=== PATIENT | male | born 1945 | race Caucasian/White ===

== ENCOUNTER 2016-05-28 15:28 | Inpatient (IN) | payer OTHER ==
[~2016-05-28] VITALS: Ht 182.9 cm; Wt 157.3 kg
[~2016-05-28 15:28] MED LIST: ACETAMINOPHEN325 M1 PO; ADVAIR 250/501 DISK IH; ALDACTONE25 MG PO; ALEVAZOL56.7 GM TP; ARICEPT10 MG PO; ASPIRIN325 MG PO; ATROVENT 00.5 MG/2.5 IH; COUMADIN10 MG PO; COUMADIN5 MG PO; COZAAR25 MG PO; CYANOCOBAL1000 MCG/2 IM; DAILY VALUE1 EACH PO; DECARA50000 UNIT PO; DOCUSATE SODIU100 MG PO; DULCOLAX10 MG PR; DULERA 200 MCG/13 GM IH; ENEMA133 M2 PR; FOLIC ACID0.4 MG PO; FOLIC ACID1 MG PO; GLUCOPHAGE500 MG PO; HUMULIN N100 UNITS/ SC; KLOR-CON M2020 MEQ PO; LANTUS 10100 UNITS/ SC; LASIX40 MG PO; LEVEMIR100 UNIT/2 SC; LOPRESSOR50 MG PO; METOLAZONE2.5 MG PO; MILK OF MAGN PO; NASAL DECONGEST30 ML BOTH NARES; NEURONTIN400 MG PO; NOVOLOG 10100 UNITS/ SC; NOVOLOG PE100 UNITS/ SC; PANTOPRAZOLE SO40 MG PO; PAXIL30 MG PO; POLYETHYLENE GL17 GM PO; PREDNISONE10 MG PO; PREDNISONE20 MG PO; PRILOSEC20 MG PO; PROVENTIL,2.5 MG/3 M IH; PROVENTIL2.5 MG/3 M IH; ROCEPHIN1000 MG IM; SPIRIVA RESPIMAT4 GM IH; SYMBICORT60 INHALAT IH; TOPROL XL50 MG PO; TRAMADOL HCL50 MG PO; VOLTAREN 0.1%2.5 ML BOTH EYES; XARELTO20 MG PO; ZANTAC150 MG PO; ZOCOR20 MG PO; ZOCOR40 MG PO
[2016-05-28 16:44] LABS: INTER. NORMALIZED RATIO 1.3; PROTHROMBIN TIME 13.8 (9.2-11.2); PTT 28.3 (25-32)
[2016-05-28 17:10] LABS: CHLORIDE 104 mEq/L (99-109); POTASSIUM 4.2 mEq/L (3.7-5.4); SODIUM 140 mEq/L (136-147)
[2016-05-28 17:12] LABS: GLUCOSE 251 mg/dL (70-99)
[2016-05-28 17:13] LABS: ANION GAP 8 MEQ/L (2-14)
[2016-05-28 17:14] LABS: TOTAL BILIRUBIN 1.5 mg/dL (0.0-1.0)
[2016-05-28 17:16] LABS: ALKALINE PHOSPHATASE 151 IU/L (3-129); GFR ESTIMATE (CALCULATED) 58 mL/min/
[2016-05-28 17:17] LABS: UREA NITROGEN (BUN) 23 mg/dL (9-23)
[2016-05-28 18:25] LABS: ADD MIUA? YES; BILIRUBIN NEGATIVE; BLOOD NEGATIVE; COLOR YELLOW ((YELLOW)); GLUCOSE (STRIP) NEGATIVE; KETONES NEGATIVE; LEUKOCYTES NEGATIVE; NITRITE NEGATIVE; PROTEIN (STRIP) NEGATIVE; SPECIFIC GRAVITY 1.011 (1.000-1.030)
[2016-05-28 18:30] VITALS: BP 104/49
[2016-05-28 18:32] LABS: BACTERIA RARE /HPF; EPITHELIAL CELLS RARE /HPF; MUCUS NONE SEEN /LPF; RED BLOOD CELLS 0-5 /HPF (0-5); UCUL ADDED? NO; WHITE BLOOD CELLS 0-5 /HPF (0-5)
[2016-05-28 18:55] VITALS: BP 98/50
[2016-05-28 19:00] LABS: ABS NEUTROPHIL COUNT 3.1; ANISOCYTOSIS 3+; EOSINOPHIL ABS CT 0.3; EOSINOPHILS 5.4 % (0-5.0); HYPOCHROMASIA 2+; INSTRUMENT ABS NEUTROPHIL CT 2.7 K/uL; LYMPHOCYTES 20.5 % (15.0-45.0); MACROCYTES 3+; MCHC 31.3 G/DL (30.0-36.0); MCV 131.1 FL (86-99); MEAN PLAT.VOLUME 10.6 uM^3 (9.0-12.4); NUCLEATED RBC'S 0.9; PLAT.SUFFICIENCY ADEQUATE; PLATELET COUNT 102 K/uL (156-360); POLYCHROMASIA 2+; RBC DIS.WIDTH-CV 18.7 % (11.8-14.6); RBC DIS.WIDTH-SD 88.8 % (39-53); RED BLOOD COUNT 1.22 M/uL (4.00-5.50); SCHISTOCYTES 1+; SEG.NEUTROPHILS 54.5 % (46.0-76.0); WHITE BLOOD COUNT 5.7 K/uL (4.1-10.2)
[2016-05-28] MEDS ORDERED: NEURONTIN400 MG PO (19:08)
[2016-05-28] MEDS ORDERED: PRILOSEC20 MG PO (19:10)
[2016-05-28] MEDS ORDERED: ERGOCALCIF50000 UNIT PO (19:13)
[2016-05-28] MEDS ORDERED: HUMULIN N100 UNITS/ SC ×2 (19:13→19:28)
[2016-05-28] MEDS ORDERED: ONE DAILY1 EAC3 PO (19:15)
[2016-05-28] MEDS ORDERED: FOLIC ACID0.4 MG PO (19:18)
[2016-05-28] MEDS ORDERED: ULTRAM50 MG PO (19:19)
[2016-05-28] MEDS ORDERED: COZAAR25 MG PO (19:20)
[2016-05-28] MEDS ORDERED: PAXIL30 MG PO (19:21)
[2016-05-28] MEDS ORDERED: COLACE100 MG PO (19:21)
[2016-05-28] MEDS ORDERED: LOPRESSOR50 MG PO (19:22)
[2016-05-28] MEDS ORDERED: B-12 COMPL1000 MCG/1 IM (19:23)
[2016-05-28] MEDS ORDERED: RANITIDINE HCL150 MG PO (19:24)
[2016-05-28] MEDS ORDERED: ASPIRIN325 MG PO (19:24)
[2016-05-28] MEDS ORDERED: ALDACTONE100 MG PO (19:25)
[2016-05-28] MEDS ORDERED: LASIX40 MG PO (19:26)
[2016-05-28] MEDS ORDERED: SYMBICORT60 INHALAT IH (19:26)
[2016-05-28] MEDS ORDERED: ARICEPT10 MG PO (19:28)
[2016-05-28] MEDS ORDERED: MIRALAX17 GM PO (19:29)
[2016-05-28] MEDS ORDERED: TYLENOL REGULA325 MG PO (19:30)
[2016-05-28] MEDS ORDERED: PROVENTIL,2.5 MG/3 M IH (19:34)
[2016-05-28] MEDS ORDERED: BENADRYL25 MG PO (19:34)
[2016-05-28] MEDS ORDERED: ATROVENT 00.5 MG/2.5 IH (19:35)
[2016-05-28] MEDS ORDERED: DULCOLAX10 MG PR (19:36)
[2016-05-28] MEDS ORDERED: FLEET ENEMA-AD118 ML PR (19:37)
[2016-05-28 22:10] VITALS: BP 118/54
[2016-05-28 22:37] VITALS: BP 132/68
[2016-05-28 23:04] VITALS: BP 139/50
[2016-05-28 23:50] VITALS: BP 121/61
[2016-05-29] VITALS (15 sets, daily range): BP systolic 112–139; BP diastolic 22–95
[2016-05-29 01:11] LABS: METH RESISTANT S AUREUS PCR POSITIVE (NEGATIVE)
[2016-05-29 01:26] LABS: PROBE CHECK PASS
[2016-05-29 10:10] LABS: HEMATOCRIT 22.9 % (38.0-50.0); MCH 35.7 PG (29.0-34.0); MCHC 32.3 G/DL (30.0-36.0); MEAN PLAT.VOLUME 10.3 uM^3 (9.0-12.4); PLATELET COUNT 94 K/uL (156-360); WHITE BLOOD COUNT 6.2 K/uL (4.1-10.2)
[2016-05-29 10:44] LABS: MCV 110.6 FL (86-99); RED BLOOD COUNT 2.07 M/uL (4.00-5.50)
[2016-05-29 16:40] LABS: POINT-OF-CARE METER ID UU13113725
[2016-05-30] VITALS (9 sets, daily range): BP systolic 110–149; BP diastolic 49–85
[2016-05-30 05:57] LABS: POINT-OF-CARE METER ID UU13113725
[2016-05-30 07:05] LABS: ALKALINE PHOSPHATASE 142 IU/L (3-129); ANION GAP 5 MEQ/L (2-14); CHLORIDE 101 MEQ/L (99-109); GFR ESTIMATE (CALCULATED) > 59 mL/min/; POTASSIUM 3.8 MEQ/L (3.7-5.4); SAMPLE HEMOLYSIS CHECK 0; SAMPLE ICTERIC CHECK 0; SAMPLE LIPEMIA CHECK 0; SODIUM 135 MEQ/L (136-147); TOTAL BILIRUBIN 2.4 MG/DL (0.0-1.0); UREA NITROGEN (BUN) 19 mg/dL (9-23)
[2016-05-30 07:22] LABS: GLUCOSE 116 mg/dL (70-99)
[2016-05-30 07:49] LABS: MCH 34.3 PG (29.0-34.0); MCHC 31.5 G/DL (30.0-36.0); MCV 108.8 FL (86-99); MEAN PLAT.VOLUME 9.8 uM^3 (9.0-12.4); NRBC (%) 0.3 /100 WBC (0-0); PLATELET COUNT 78 K/uL (156-360); RED BLOOD COUNT 2.39 M/uL (4.00-5.50)
[2016-05-30 10:37] LABS: ANISOCYTOSIS 3+; BASOPHIL COUNT 0.1 K/uL (0-0.1); EOSINOPHIL (%) 4.9 % (0-5); EOSINOPHIL COUNT 0.3 K/uL (0-0.3); IMMATURE GRANULOCYTE (%) 0.6 % (0.0-0.7); INSTRUMENT ABS NEUTROPHIL CT 3.7 K/uL; LYMPHOCYTE COUNT 1.3 K/uL (1.0-2.8); MACROCYTES 3+; MONOCYTE (%) 21.8 % (3-12); MONOCYTE COUNT 1.5 K/uL (0-0.8); NEUTROPHIL (%) 53.2 % (45-76); NEUTROPHIL COUNT 3.7 K/uL (1.8-6.4)
[2016-05-31] VITALS (14 sets, daily range): BP systolic 111–126; BP diastolic 43–79
[2016-05-31 11:09] LABS: POINT-OF-CARE METER ID UU13113725
[2016-05-31 19:10] LABS: ABS NEUTROPHIL COUNT 4.6; ANISOCYTOSIS 2+; EOSINOPHIL ABS CT 0.3; EOSINOPHILS 4.5 % (0-5.0); HEMATOCRIT 30.6 % (38.0-50.0); INSTRUMENT ABS NEUTROPHIL CT 3.8 K/uL; LYMPHOCYTES 10.7 % (15.0-45.0); MACROCYTES 2+; MCH 33.7 PG (29.0-34.0); MCHC 32.7 G/DL (30.0-36.0); NRBC (%) 0.3 /100 WBC (0-0); PLAT.SUFFICIENCY DECREASED; PLATELET COUNT 71 K/uL (156-360); POLYCHROMASIA 1+; RBC DIS.WIDTH-CV 27.8 % (11.8-14.6); RBC DIS.WIDTH-SD 93.8 % (39-53); SEG.NEUTROPHILS 65.2 % (46.0-76.0); SMUDGE CELLS 11.6; WHITE BLOOD COUNT 7.1 K/uL (4.1-10.2)
[2016-05-31 19:12] LABS: RED BLOOD COUNT 2.97 M/uL (4.00-5.50)
[2016-05-31 19:21] LABS: ANION GAP ND MEQ/L (2-14); SAMPLE HEMOLYSIS CHECK 0; SAMPLE ICTERIC CHECK 1; SAMPLE LIPEMIA CHECK 0
[2016-05-31 19:25] LABS: GFR ESTIMATE (CALCULATED) > 59 mL/min/; GLUCOSE 150 mg/dL (70-99); UREA NITROGEN (BUN) 22 mg/dL (9-23)
[2016-05-31 20:18] LABS: CHLORIDE 100 MEQ/L (99-109); POTASSIUM 3.8 MEQ/L (3.7-5.4); SODIUM 133 MEQ/L (136-147)
[2016-06-01 03:17] VITALS: BP 118/59
[2016-06-01 06:34] LABS: HEMATOCRIT 29.1 % (38.0-50.0); MCH 33.6 PG (29.0-34.0); MCHC 32.3 G/DL (30.0-36.0); MCV 103.9 FL (86-99); MEAN PLAT.VOLUME 10.5 uM^3 (9.0-12.4); NRBC (%) 0.2 /100 WBC (0-0); PLATELET COUNT 66 K/uL (156-360); RBC DIS.WIDTH-CV 27.4 % (11.8-14.6); RBC DIS.WIDTH-SD 95.2 % (39-53); WHITE BLOOD COUNT 8.4 K/uL (4.1-10.2)
[2016-06-01 06:40] VITALS: BP 137/67
[2016-06-01 07:02] LABS: ALKALINE PHOSPHATASE 132 IU/L (3-129); ANION GAP 5 MEQ/L (2-14); CHLORIDE 100 MEQ/L (99-109); GFR ESTIMATE (CALCULATED) > 59 mL/min/; GLUCOSE 113 mg/dL (70-99); MAGNESIUM 1.8 mg/dl (1.3-2.7); POTASSIUM 3.7 MEQ/L (3.7-5.4); SAMPLE HEMOLYSIS CHECK 0; SAMPLE ICTERIC CHECK 1; SAMPLE LIPEMIA CHECK 0; SODIUM 132 MEQ/L (136-147); UREA NITROGEN (BUN) 21 mg/dL (9-23)
[2016-06-01 07:03] LABS: TOTAL BILIRUBIN 3.5 MG/DL (0.0-1.0)
[2016-06-01 11:08] VITALS: BP 133/66
[2016-06-01 16:22] VITALS: BP 122/65
[2016-06-01 18:44] VITALS: BP 117/56
[2016-06-01 23:01] VITALS: BP 110/54
[2016-06-02 02:56] VITALS: BP 115/55
[2016-06-02 05:37] LABS: POINT-OF-CARE METER ID UU13113725
[2016-06-02 06:22] LABS: EOSINOPHIL (%) 5.1 % (0-5); EOSINOPHIL COUNT 0.4 K/uL (0-0.3); HEMATOCRIT 28.7 % (38.0-50.0); IMMATURE GRANULOCYTE (%) 0.7 % (0.0-0.7); IMMATURE GRANULOCYTE COUNT 0.1 K/uL; LYMPHOCYTE COUNT 1.2 K/uL (1.0-2.8); MCH 33.5 PG (29.0-34.0); MCHC 32.1 G/DL (30.0-36.0); MCV 104.4 FL (86-99); MEAN PLAT.VOLUME 10.4 uM^3 (9.0-12.4); MONOCYTE (%) 24.1 % (3-12); MONOCYTE COUNT 1.8 K/uL (0-0.8); NEUTROPHIL (%) 53.9 % (45-76); PLATELET COUNT 67 K/uL (156-360); RBC DIS.WIDTH-CV 26.8 % (11.8-14.6); RBC DIS.WIDTH-SD 94.6 % (39-53); RED BLOOD COUNT 2.75 M/uL (4.00-5.50); WHITE BLOOD COUNT 7.4 K/uL (4.1-10.2)
[2016-06-02 06:41] LABS: ANION GAP 6 MEQ/L (2-14); CHLORIDE 101 MEQ/L (99-109); GFR ESTIMATE (CALCULATED) > 59 mL/min/; GLUCOSE 135 mg/dL (70-99); POTASSIUM 3.9 MEQ/L (3.7-5.4); SAMPLE HEMOLYSIS CHECK 0; SAMPLE ICTERIC CHECK 0; SAMPLE LIPEMIA CHECK 0; SODIUM 134 MEQ/L (136-147); UREA NITROGEN (BUN) 23 mg/dL (9-23)
[2016-06-02 07:26] VITALS: BP 132/60
[2016-06-02 11:57] LABS: POC NON-PRINT COM 1 ND
[2016-06-02 11:57] LABS: POC NON-PRINT COM 1 ND
== END 2016-06-02 16:59 | DRG 811 ==
LOC: EME 15:28 → 5EAST 22:11 → EDOF 22:11 → 5EAST 23:16
PROVIDERS: Emergency Medicine; Family Medicine; Internal Medicine
PROC: 30233N1 Transfusion of Nonautologous Red Blood Cells into Peripheral Vein, Percutaneous Approach (ICD-10-PCS; principal; 2016-05-29)
DX: D46.9 Myelodysplastic syndrome, unspecified (principal); D63.8 Anemia in other chronic diseases classified elsewhere; J96.21 Acute and chronic respiratory failure with hypoxia; I50.43 Acute on chronic combined systolic (congestive) and diastolic (congestive) heart failure; Z68.42 Body mass index [BMI] 45.0-49.9, adult; E66.01 Morbid (severe) obesity due to excess calories; I48.2 Chronic atrial fibrillation; E11.9 Type 2 diabetes mellitus without complications; G47.33 Obstructive sleep apnea (adult) (pediatric); I25.10 Atherosclerotic heart disease of native coronary artery without angina pectoris; I10 Essential (primary) hypertension; F03.90 Unspecified dementia, unspecified severity, without behavioral disturbance, psychotic disturbance, mood disturbance, and anxiety; Z74.01 Bed confinement status; Z87.01 Personal history of pneumonia (recurrent)
CPT/HCPCS: 71010; 80048; 80053; 81003; 82272; 82948; 83735; 85025; 85027; 85610; 85730; 86850; 86900; 86901; 86920; 87081; 87641; 94640; 94640 76; 94760; 94799; 99202; 99281; 99285; J1815; J1940; J7030; P9016